=== PATIENT | female | born 1990 | race Caucasian/White ===

== ENCOUNTER 2018-01-19 15:13 | Emergency (ER) | END 2018-01-20 00:33 | disposition short-term general hospital (02) ==

== ENCOUNTER 2018-04-16 19:32 | Emergency (ER) | END 2018-04-16 23:15 | disposition home or self-care (01) ==

== ENCOUNTER 2019-03-06 14:44 | Emergency (ER) | payer OTHER ==
[~2019-03-06] VITALS: Ht 157.5 cm; Wt 118.7 kg
[~2019-03-06 14:44] MED LIST: CEPH-443 PO; ERGO500013 PO; IBUP-1542 PO; NORCO; SULF1TAB31 PO
[2019-03-06 14:47] VITALS: Ht 157.5 cm; Wt 118.7 kg
[2019-03-06] MEDS ORDERED: SODIUM CHLORIDE 0.9% 1L BAG IV* STA (15:44)
[2019-03-06] MEDS ORDERED: CEFEPIME 2GM/50 ML (PMX) 50 ML IVPB STA (15:44)
[2019-03-06] MEDS ORDERED: VANCOMYCIN 1 GM (PMX) 250 ML IVPB ONE (16:00)
[2019-03-06] MEDS ORDERED: morphine 10 MG INJ IV ONE (19:30)
--- NOTE | 2019-03-06 19:44 | ERD ---
ER Documentation Chief Complaint Chief Complaint Pt reports FRANKEL, brain sx 6 weeks ago, swelling to incision site HPI 29-year-old female not very much aware of her medical history presenting with left posterior headache around her surgical site. She had a cranioplasty 6 weeks ago by at [facility]. She has had the symptoms for 2 days. She is complaining of 9 out of 10 pain, throbbing, nonradiating, constant, with no alleviating or exacerbating factors. No associated fever or chills. No associated nausea or vomiting. No associated vision disturbance, focal weakness or numbness. ROS All systems reviewed and are negative except as per history of present illness. Medications Home Meds Active Scripts Ibuprofen* (Motrin*) 600 Mg Tab, 600 MG PO Q6H PRN for PAIN AND OR ELEVATED TEMP, #30 TAB Prov:CARMENCITA EVANGELISTA MD 03/06/19 Sulfamethoxazole/Trimethoprim* (Bactrim Ds* Tablet) 1 Each Tablet, 1 TAB PO BID, #14 TAB Prov:CARMENCITA EVANGELISTA MD 03/06/19 Cephalexin* (Keflex*) 500 Mg Capsule, 500 MG PO QID for 7 Days, CAP Prov:CARMENCITA EVANGELISTA MD 03/06/19 Discontinued Reported Medications [[place]] No Conflict Check, for Patient does't remember dose 03/06/19 Ergocalciferol (Vitamin D2) (VITAMIN D2) 50,000 Unit Capsule, 16414 UNIT PO Q7D, CAP 01/19/18 Discontinued Scripts Ibuprofen* (Motrin*) 600 Mg Tab, 600 MG PO Q6, #30 TAB Prov:JOANNA CHAPA 04/16/18 Allergies Allergies: Coded Allergies: No Known Allergies (Verified Allergy, Unknown, 01/19/18) PMhx/Soc History of Surgery: Yes (Surgery left humerus, cranioplasty) Anesthesia Reaction: No Hx Neurological Disorder: No Hx Respiratory Disorders: No Hx Cardiac Disorders: No Hx Psychiatric Problems: No Hx 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) Hx Alcohol Use: No Hx Substance Use: No Hx Tobacco Use: No Smoking Status: Never smoker FmHx Family History: No coronary disease Physical Exam Vitals Vital Signs Date Temp Pulse Resp B/P (MAP) Pulse Ox O2 O2 Flow FiO2 Time Delivery Rate 03/06/19 98.5 103 16 114/70 97 Room Air 20:48 (85) 03/06/19 99.4 95 14 133/76 100 Room Air 20:04 (95) 03/06/19 99.4 90 22 127/68 100 Room Air 18:48 (87) 03/06/19 99.4 100 22 115/70 100 Room Air 17:17 (85) 03/06/19 99.4 109 20 118/66 98 Room Air 16:12 (83) 03/06/19 99.4 120 20 151/78 96 14:47 (102) Physical Exam Const: No acute distress Head: Atraumatic Eyes: Normal Conjunctiva, PERRLA, EOMI ENT: Normal External Ears, Nose and Mouth. Left external ear canal with mass blocking canal. Left postauricular and supra-auricular areas with swelling, induration, erythema and tenderness. Surgical site well-healed with no drainage or dehiscence. Neck: Full range of motion. No meningismus. Resp: Clear to auscultation bilaterally Cardio: Regular rate and rhythm, no murmurs Abd: Soft, non tender, non distended. Normal bowel sounds Skin: No petechiae or rashes Ext: No cyanosis, or edema Neur: Awake and alert, normal speech, no facial asymmetry, strength and sensations intact in all 4 extremities. Normal gait. Psych: Normal Mood and Affect Result Diagram: 03/06/19 1540 03/06/19 1540 Results 24 hrs Laboratory Tests Test 03/06/19 15:40 03/06/19 15:55 03/06/19 16:03 03/06/19 16:05 White Blood Count 12.1 10^3/ul Red Blood Count 3.94 10^6/ul Hemoglobin 8.9 g/dl Hematocrit 29.5 % Mean Corpuscular 74.9 fl Volume Mean Corpuscular 22.6 pg Hemoglobin Mean Corpuscular 30.2 g/dl Hemoglobin Concent Red Cell Distribution 16.5 % Width Platelet Count 315 10^3/UL Mean Platelet Volume 8.5 fl Immature Granulocytes 0.700 % % Neutrophils % 77.8 % Lymphocytes % 11.7 % Monocytes % 8.6 % Eosinophils % 0.7 % Basophils % 0.5 % Nucleated Red Blood 0.0 /100WBC Cells % Immature Granulocytes 0.080 10^3/ul # Neutrophils # 9.4 10^3/ul Lymphocytes # 1.4 10^3/ul Monocytes # 1.0 10^3/ul Eosinophils # 0.1 10^3/ul Basophils # 0.1 10^3/ul Nucleated Red Blood 0.0 10^3/ul Cells # Prothrombin Time 12.5 Sec Prothrombin Time Ratio 1.0 INR International 0.92 Normalized Ratio Activated 30.1 Sec Partial Thromboplast Time Sodium Level 138 mmol/L Potassium Level 3.8 mmol/L Chloride Level 103 mmol/L Carbon Dioxide Level 27 mmol/L Anion Gap 8 Blood Urea Nitrogen 10 mg/dl Creatinine 0.69 mg/dl Est Glomerular Filtrat > 60 mL/min Rate mL/min Glucose Level 103 mg/dl Calcium Level 9.2 mg/dl Total Bilirubin 0.4 mg/dl Direct Bilirubin 0.00 mg/dl Indirect Bilirubin 0.4 mg/dl Aspartate Amino 15 IU/L Transf (AST/SGOT) Alanine 20 IU/L Aminotransferase (ALT/ SGPT) Alkaline Phosphatase 120 IU/L Total Protein 7.3 g/dl Albumin 3.8 g/dl Globulin 3.50 g/dl Albumin/Globulin Ratio 1.08 POC Venous Lactate 1.7 mmol/L Bedside Urine pH (LAB) 7.0 Bedside Urine Protein 1+ (LAB) Bedside Urine Glucose Negative (UA) Bedside Urine Ketones Negative (LAB) Bedside Urine Blood 2+ Bedside Urine Nitrite Negative (LAB) Bedside Urine 1+ Leukocyte Esterase (L POC Beta HCG, NEGATIVE Qualitative Test 03/06/19 19:01 Lactic Acid Level 0.7 mmol/L Current Medications Medications Dose Sig/Se Start Time Status Last (Trade) Ordered Route PRN Stop Time Admin Dose Reason Admin Sodium 1,500 ml BOLUS OVER 2 03/06/19 DC 03/06/19 Chloride HOURS STAT 15:44 03/06/19 16:07 (NS) IV* 15:45 Cefepime HCl 50 ml @ ONCE STAT 03/06/19 DC 03/06/19 100 mls/hr IVPB 15:44 03/06/19 16:07 16:13 Vancomycin 250 ml @ ONCE ONCE 03/06/19 DC 03/06/19 HCl 125 mls/hr IVPB 16:00 03/06/19 17:12 17:59 Morphine 6 mg ONCE ONCE 03/06/19 DC 03/06/19 Sulfate IV 19:30 03/06/19 19:18 (morphine) 19:31 Procedures/MDM EMERGENT LABS AND DIAGNOSTIC STUDIES: Lab Results above were reviewed and interpreted by me. CBC: Mild leukocytosis, mild anemia CMP: No evidence of clinically significant electrolyte abnormality, acidosis, renal failure, hypoglycemia, liver disease, or biliary obstruction Lactate within normal limits without evidence of sepsis or tissue hypoperfusion Radiology Results as interpreted by Radiology below were reviewed by Godfrey Evangelista MD: MRI brain with and without contrast: IMPRESSION: 1. Postoperative change with left sided large petrous temporal craniectomy and cranioplasty, with fat packing. 2. Overlying the craniectomy, there is a retroauricular and supra-auricular scalp fluid collection, 5.5 x 4.8 x 1.8 cm. This likely reflects a seroma. A pseudomeningocele is not entirely excluded. Infection of the collection is not radiographically excluded. 3. Mild dural thickening and enhancement over the inferior left temporal lobe, which may be postoperative. 4. Small encephalomalacia in the anterior inferior right cerebellum region. A previously seen low density lesion in the right cerebellopontine angle area is no longer identified. Initial Nursing notes reviewed. Previous Medical Records requested via the Electronic Health Record. EMERGENCY DEPARTMENT COURSE / MEDICAL DECISION MAKING: Patient is presenting with Left posterior auricular swelling and erythema, concerning for postoperative cellulitis versus abscess. Sepsis work-up was initiated but there is no evidence of severe sepsis or septic shock. Patient treated with broad-spectrum antibiotics. I spoke with her neurosurgeon, Dr. Parisi, who requested an MRI be done. MRI was done and results were discussed with him. He recommended starting the patient on oral antibiotics and having the patient follow-up with him in his office tomorrow. He does not recommend ad mission at this time and does not feel that the patient needs drainage. Plan was discussed with patient. She was provided with a copy of her results. He was discharged on oral antibiotics in stable condition. Patient's blood pressure was elevated (>120/80) but appears stable without evidence of hypertensive emergency or urgency. The patient was counseled about the risks of hypertension and urged to pursue outpatient monitoring and therapy within a week with their primary care physician. Departure Diagnosis: Primary Impression: Postoperative infection Encounter type: initial encounter Postoperative infection type: unspecified type Qualified Codes: T81.40XA - Infection following a procedure, unspecified, initial encounter Additional Impression: Cellulitis of postauricular region Condition: Stable CARMENCITA EVANGELISTA MD Mar 06, 2019 19:44
[2019-03-06 20:48] VITALS: BP 114/70; PULSE 103; RESP 16
== END 2019-03-06 20:52 | disposition home or self-care (01) ==
LOC: E/R 14:44
DX: R51 Headache (principal); Z85.830 Personal history of malignant neoplasm of bone
CPT/HCPCS: 36415; 70553; 80053; 81025; 83605; 85025; 85610; 85730; 87040; 93005; 96365; 96366; 96375; J0692; J2270; J3370; J7030; Z7502; 81003